=== PATIENT | female | born 1980 ===

== ENCOUNTER 2018-08-15 00:23 | Inpatient (IN) | payer MEDICAID ==
[2018-08-15] MEDS ORDERED: Lactated Ringer's 1,000 ML IV ONE (01:19)
[2018-08-15] MEDS ORDERED: Oxytocin 30 UNIT 30 UNITS/500 ML BAG IV ONE ×2 (01:19→02:52)
[2018-08-15 01:20] VITALS: BMI 29.7
[2018-08-15] MEDS ORDERED: Lactated Ringer's 1,000 ML IV SCH (01:30)
[2018-08-15 02:24] LABS: BASO % 0.5 % (0.0-2.0); EOS # 0.1 K/uL (0.0-0.7); EOS % 0.7 % (0.0-4.0); HEMOGLOBIN 12.7 g/dL (12.0-16.0); LYMPH # 1.2 K/uL (1.0-4.3); LYMPH % 14.4 % (20.0-40.0); MEAN CELL VOLUME 96.5 fl (81.0-99.0); MEAN CORPUSCULAR HEMOGLOBIN 33.2 pg (27.0-31.0); MEAN CORPUSCULAR HGB CONC 34.4 g/dL (33.0-37.0); MEAN PLATELET VOLUME 9.8 fl (7.2-11.7); MONO # 0.6 K/uL (0.0-0.8); MONO % 6.6 % (0.0-10.0); NEUT # 6.6 K/uL (1.8-7.0); NEUT % 77.8 % (50.0-75.0); RBC 3.83 Mil/uL (3.80-5.20); RED CELL DISTRIBUTION WIDTH 12.3 % (11.5-14.5); WHITE BLOOD COUNT 8.4 K/uL (4.8-10.8)
[2018-08-15] MEDS ORDERED: Bupivacaine HCl 0.5% PF (30 ml) Inj ONE (03:07)
--- NOTE | 2018-08-15 03:30 | OBADHP ---
Datetime: 08/15/2018 01:20 Admit Comment, IP Provider: 36 y/o female IUP 38.0 wk GA presents to [facility] w/ c/o suprapubic abdominal pain and contractions. She denies vaginal bleeding/VFL. GBS negative. PNC: [facility] Dr. Avalos PMH: none PSurgical: none Famhx: none Socialhx:denies tobacco, etoh, recreational drug use Home Rx: none Allergies: NKDA O: Afebrile General: patient is very uncomfortable Heart: RRR Chest: CTA B/L Abd: Soft,NT ,Bs- present FHR: , moderate variability, no decelerations [place]: regular contractions SVE: 3 cm dilated, thin, high station (Chaperoned by Nurse Los) Assessment: 38 y/o female IUP at 38.02 wk GA latent phase of labor +painful CTX Plan: Admit patient to L_D 1L LR bolus 1L LR 125mLs/hr CBC, type and screen ordered Monitor FHR Observe and reevaluate in 2 hours Re-exam 2:15 AM, patient 6-7 cm dilated intitiate labor protocol Case discussed w/ attending Funmilayo Caputo PGY-I OB Hospitalist on-call. With PGY I saw an examiend this patinet. Agree with note. GBS neg FHR - Baseline A Provider: 140 Membranes, Provider: Intact Contraction Comments Provider: irregular Comments, ACOG Physical Exam: U/S at bedside shows fetus in vertex presentation Gestation - Est Wks by US: 38.0 Pool Provider: Negative IP Hx Assessment: The History has been Reviewed and is Current Vital Signs Provider: Reviewed; Within Normal Limits IP Chief Complaint: Uterine contractions; Maternal discomfort NICHD Variability Prov Fetus A: Moderate 6-25bpm NICHD Accel Fetus A IP Provider: [id number] FHR Category Provider Fetus A: Category I NICHD Decel Fetus A IP Provider: None Dilatation, Provider: 3 Effacement, Provider: thin Station, Provider: high EGA AdmitDate IP: 38.0 IP Adm Impression: Term, intrauterine ; Intact Membranes IP Admit Plan: Admit to unit; Initiate labor protocol Datetime: 08/15/2018 01:00 Pelvic Type - PN: Adequate Extremities - PN: Normal Abdomen - PN: Normal Back - PN: Normal Breast - PN: Not Done Lungs - PN: Normal Heart - PN: Normal Thyroid - PN: Normal Neurologic - PN: Normal HEENT - PN: Normal General - PN: Normal Presentation-Admit: Vertex Genitourinary Exam: Normal DTRs - PN: Not Done
[2018-08-15] MEDS ORDERED: Benzocaine/Menthol SPRAY TOP PRN ×2 (03:36→05:49)
[2018-08-15] MEDS ORDERED: OXYTOCIN/0.9 % NS 20 UNIT/1,000 ML BAG IV ONE (03:36)
[2018-08-15] MEDS ORDERED: Oxycodone/Acetaminophen 5/325 mg Tab PO PRN ×2 (03:36→05:49)
[2018-08-15 12:29] LABS: BASO % 0.2 % (0.0-2.0); EOS % 0.1 % (0.0-4.0); HEMOGLOBIN 11.6 g/dL (12.0-16.0); LYMPH # 0.9 K/uL (1.0-4.3); LYMPH % 7.8 % (20.0-40.0); MEAN CELL VOLUME 96.5 fl (81.0-99.0); MEAN CORPUSCULAR HEMOGLOBIN 33.2 pg (27.0-31.0); MEAN CORPUSCULAR HGB CONC 34.4 g/dL (33.0-37.0); MEAN PLATELET VOLUME 9.2 fl (7.2-11.7); MONO # 0.8 K/uL (0.0-0.8); MONO % 6.7 % (0.0-10.0); NEUT # 9.9 K/uL (1.8-7.0); NEUT % 85.2 % (50.0-75.0); PLATELET COUNT 159 K/uL (130-400); RBC 3.51 Mil/uL (3.80-5.20); RED CELL DISTRIBUTION WIDTH 12.6 % (11.5-14.5); WHITE BLOOD COUNT 11.6 K/uL (4.8-10.8)
[2018-08-15 14:45] LABS: BASOPHIL 1 % (0-2); LYMPHOCYTE 7 % (20-50); MONOCYTE 5 % (0-10); NEUTROPHIL 87 % (42-75); TOTAL CELLS COUNTED 100
[2018-08-15 14:46] LABS: PLATELET ESTIMATE NORMAL (NORMAL)
[2018-08-15 14:49] LABS: ANISOCYTOSIS SLIGHT; LARGE PLATELETS PRESENT; MICROCYTOSIS SLIGHT; OVALOCYTES SLIGHT; TEARDROP CELLS SLIGHT
--- NOTE | 2018-08-16 19:32 | OBPPN ---
Datetime: 08/16/2018 12:58 PP Pain Prov: Within normal limits PP Nausea Prov: Denies PP Flatus Prov: Yes PP BM Prov: Yes PP Breasts Prov: Normal PP Heart Prov: Normal PP Lungs Prov: Normal PP Abdomen/Uterus Prov: Normal PP Lochia Prov: Normal PP Vulva/Perineum Prov: Normal PP CVA Tenderness Prov: Normal PP Extremities Prov: Normal PP C/S Incision Prov: Not Applicable PP Progress Prov: Not Applicable PP Impression Prov: Normal progression PP Plan Prov: Continue present management PP Progress Note Prov: S: Patient seen and examined this morning. NAD, normal progression , s/p SNVD on 08/15/18. Ambulating, tolerating PO intake, voiding freely, pain is well controlled, norma ast feeding the baby, voiding freely. +BM. Denies pain or bleeding. O: VS: stable GEN: NAD Cardio: s1s2, no M/G/R Resp: clear breath sounds b/l Abdomen: BS+, NT, Uterus is firm and at the level of the umbilicus. EXT: No edema, calves nontender NEURO/PSYCHI: AAOx3, no grossly focal deficit, preserved affect and mood. A/P: 38 y/o F. , s/p SNVD, PPD 1, healthy male NB - C/w Breast feeding, ambulation and PO intake - Normal PP progression - C/w current management - pain managment - NB for Circ today, Dr. Camacho made aware --- JPATEL, PGY2 IP PP Procedures: None Vital Signs Provider PP: Reviewed
--- NOTE | 2018-08-17 10:31 | OBPPN ---
Datetime: 08/17/2018 07:25 PP Pain Prov: Within normal limits PP Nausea Prov: Denies PP Flatus Prov: Yes PP BM Prov: Yes PP Breasts Prov: Not Done PP Heart Prov: Normal PP Lungs Prov: Normal PP Abdomen/Uterus Prov: Normal PP Lochia Prov: Normal PP Vulva/Perineum Prov: Not Done PP CVA Tenderness Prov: Normal PP Extremities Prov: Normal PP C/S Incision Prov: Not Applicable PP Progress Prov: Normal PP Impression Prov: Normal progression PP Plan Prov: Continue present management; Discharge PP Progress Note Prov: Patient seen and examined at the bedside in morning. Reports passing gas and stool. Tolerating PO diet.Lochia like menses. Patient is without difficulties. She has no complaints this AM. VSS, Afebrile Gen: NAD Lungs: CTA bilaterally CVS: RRR, S1, S2 WNL, no murmurs. Abd: ND, +BS, appropriated tenderness, fundus firm at umbilical level. Ext: No edema, negative calf tenderness. Neuro/psych: AAOx3 A/P: 38 y/o female at 38.9 WK GA PPD2 -Encourage ambulation -Encourage -Diet as tolerated -Ibuprofen 600 mg for pain mgmt -Senekot 17.2 mg PO for constipation -anticipated discharge today Funmilayo Caputo PGY-I Patient seen and examined by me this am. Agree with above resident note. Patient for discharge dory e today with follow up in 6 weeks and baby to follow up with Peds in 1 wk. --Dr. Puentes Vital Signs Provider PP: Reviewed; Within Normal Limits
[2018-08-18 02:35] VITALS: BP 113/71; PULSE 64; RESP 16; TEMP 97.4
== END 2018-08-17 20:45 | disposition home or self-care (01) | DRG 373 ==
LOC: H.EROB2 00:23 → MERGE 01:20 → H.L&D 01:20 → H.OB/GYN 05:30
PROVIDERS: ADMIT Obstetrics & Gynecology; ATTEND Obstetrics & Gynecology
PROC: 10E0XZZ Delivery of Products of Conception, External Approach (ICD-10-PCS; principal; 2018-08-15)
PROC: 4A1HXCZ Monitoring of Products of Conception, Cardiac Rate, External Approach (ICD-10-PCS; 2018-08-15)
DX: O80 Encounter for full-term uncomplicated delivery (principal); Z37.0 Single live birth; Z3A.38 38 weeks gestation of pregnancy; K59.00 Constipation, unspecified